=== PATIENT | female | born 1940 | race Caucasian/White ===

== ENCOUNTER 2020-12-02 07:12 | Emergency (ER) | payer MEDICARE, OTHER ==
[~2020-12-02 07:12] MED LIST: ELIQUIS2.5 MG PO
[2020-12-02 08:00] LABS: HEMOGLOBIN 15.6 gm/dl (12.3-15.3); RED BLOOD COUNT 5.3 M/UL (4.00-5.10); WHITE BLOOD COUNT 7.9 K/UL (4.5-11.0)
[2020-12-02 08:30] LABS: BUN/CREATININE RATIO 21 (0-10)
== END 2020-12-02 16:38 | disposition home or self-care (01) ==
LOC: ER1 07:12
PROVIDERS: Student in an Organized Health Care Education/Training Program
DX: R10.12 Left upper quadrant pain (principal); R10.11 Right upper quadrant pain; I48.91 Unspecified atrial fibrillation; I25.10 Atherosclerotic heart disease of native coronary artery without angina pectoris; N18.9 Chronic kidney disease, unspecified; Z79.01 Long term (current) use of anticoagulants
CPT/HCPCS: 70450; 71045; 80053; 81001; 82550; 82553; 83605; 83690; 83874; 84439; 84443; 84484; 85025; 93005; 99284